=== PATIENT | female | born 1960 ===

== ENCOUNTER 2016-12-21 14:47 | Outpatient (CLI) | payer OTHER ==
--- NOTE | 2016-12-21 16:22 | XRay Report ---
Metastatic bone survey: Cancer. Standard imaging of the axial skeleton, ribs, skull, pelvis, and proximal long bones are included. The bones are generally demineralized. There is an S-shaped scoliosis in the thoracolumbar spine convex to the right in the thoracic and to the left in the lumbar regions. There are associated lateral vertebral compression changes secondary to the scoliosis. No destructive lesion however noted. Mild narrowing with spondylosis at C5-6. The bony structures otherwise appear unremarkable. Impression: No metastatic lesions identified. A
== END 2016-12-21 14:48 | disposition home or self-care (01) ==
LOC: SPVIMAG 14:47
PROVIDERS: ATTEND Internal Medicine Hematology & Oncology
DX: M47.892 Other spondylosis, cervical region (principal); M41.85 Other forms of scoliosis, thoracolumbar region; M89.9 Disorder of bone, unspecified
CPT/HCPCS: 77074